=== PATIENT | female | born 1970 | race Caucasian/White ===

== ENCOUNTER 2017-04-04 08:09 | Day surgery (SDC) | payer OTHER ==
[2017-04-02 10:00] VITALS: BMI 21.9
[2017-04-04] MEDS ORDERED: PROPOFOL 20 ML ONE ×2 (08:18)
[2017-04-04] MEDS ORDERED: LIDOCAINE HCL/PF 2% SDV 5ML VIAL ONE (08:18)
[2017-04-04] MEDS ORDERED: ONDANSETRON 4 MG/2 ML VIAL ONE (08:55)
[2017-04-04 10:02] VITALS: TEMP 97.6
[2017-04-04 10:12] VITALS: BP 102/62; PULSE 76
== END 2017-04-04 10:10 | disposition home or self-care (01) ==
LOC: FASU-ENDO 08:09
PROVIDERS: ATTEND Internal Medicine Gastroenterology
PROC: 0DJD8ZZ Inspection of Lower Intestinal Tract, Via Natural or Artificial Opening Endoscopic (ICD-10-PCS; principal; 2017-04-04 09:02)
DX: K59.00 Constipation, unspecified (principal)
CPT/HCPCS: 84703